=== PATIENT | male | born 1985 ===

== ENCOUNTER 2025-03-01 14:11 | Emergency (ER) | payer SELFPAY ==
[2025-03-01] VITALS (9 sets, daily range): BP systolic 115–142; BP diastolic 57–76; PULSE 66–127; RESP 11–19; TEMP 36.7–36.8; O2SAT 95–100; BMI 26.6
--- NOTE | 2025-03-01 14:23 | ED_ITS ---
HPI - General Adult General Chief complaint: Overdose Stated complaint: ?OD,NO NARCAN GIVEN, IN/OUT OF SLEEP PER EMS Time Seen by Provider: 03/01/25 14:20 Source: patient and EMS Mode of arrival: EMS Limitations: other (Not cooperative) History of Present Illness ED Provider: ALFRED Padilla HPI narrative: 39-year-old male presents uncooperative, trying to do snot rockets at staff members, spitting. Patient uncooperative not providing history. According to EMS question overdose they did not give Narcan patient is in and out of sleep according to them. When he arrives he is somnolent. Narcan will be given. Followed by Haldol, Benadryl and Valium as a sedative as patient is a threat to self and others. Limited history and review of systems due to patient's aggressive behavior Security at bedside Related Data Allergies Allergy/AdvReac Type Severity Reaction Status Date / Time No Known Allergies Allergy Verified 03/01/25 14:52 Review of Systems Review of Systems: Yes all other systems are reviewed and are negative [facility] Past Medical History Attestation statement: The following information was validated with the patient. Source: old records reviewed and nursing notes reviewed Social History Social History Smoked in Last 30 Days: Yes Use of substances other than those prescribed or required for medical reasons: Yes Do you have a plan to hurt others: No Plan Physical Exam ED Exam Exam: Appearance: Alert.? Oriented X3.? No acute distress.?+ aggressive Head: Normocephalic, atraumatic, no step-offs or deformities Eyes: Pupils equal, round and reactive to light.? Neck: Normal inspection.? Neck supple.? CVS: Normal heart rate and rhythm.? Pulses normal.? Respiratory: No respiratory distress.? Breath sounds normal.? Abdomen: Soft and nontender.? Skin: Skin warm and dry.? Normal skin color.? Normal skin turgor.? Extremities: No lower extremity edema.? No calf ttp. 5/5 strength to bilateral upper and lower extremities Neuro: Oriented X 3.? No motor deficit.? No sensory deficit. CN 2-12 intact Vital Signs: Vital Signs - 24 hr 03/01/25 15:19 03/01/25 15:33 03/01/25 15:48 Temperature Pulse Rate 127 H 101 H 100 Respiratory Rate 16 18 19 Blood Pressure 142/57 H 135/75 125/68 Pulse Oximetry 100 100 99 Oxygen Delivery Method Room Air Room Air Room Air 03/01/25 16:04 03/01/25 16:24 03/01/25 18:04 Temperature Pulse Rate 98 102 H 100 Respiratory Rate 18 18 18 Blood Pressure 115/76 127/60 122/57 L Pulse Oximetry 100 96 95 Oxygen Delivery Method Room Air Room Air 03/01/25 19:53 03/01/25 21:55 03/02/25 01:57 Temperature 98.3 F 98.1 F 97.7 F Pulse Rate 81 66 70 Respiratory Rate 11 L 10 L Blood Pressure 120/61 127/75 125/81 Pulse Oximetry 97 98 100 Oxygen Delivery Method Room Air Room Air Room Air BMI result Body Mass Index 26.6 vss Course Reevaluation(s) Reevaluation #1: Patient responded very well to Haldol diazepam and Benadryl. He has been sleeping for awhile. Vital signs are stable. Laboratory studies have not yet been obtained. Sign-out will be given to next provider Justice Mcnulty pending blood work and re- evaluation Time: 17:54 Reevaluation #2: 11:42 PM 03/01/2025 (Lincoln SIMON): Patient is signed out to this provider at shift change. In summary the patient is a 39-year-old male presenting to the ED for evaluation of unresponsive episode in the street, patient woke to verbal stimuli for EMS and did not require Narcan. The patient reportedly arrived to the ED very somnolent however shortly thereafter became highly agitated, spitting and kicking, yelling, requiring chemical restraint. The patient r eceived Benadryl, Haldol, and Valium IM. The patient is subsequently became more calm and was given his methadone dosing. Since receiving methadone patient began refusing labs or other intervention or assessment. The patient was offered detox services and declined. Patient was signed out to this provider pending re-evaluation as he was extremely somnolent following chemical restraint. At this time patient remains sleepy but wakes to verbal stimuli, no evidence of acute distress. Patient has been monitored now for 9 hours since administration of chemical restraint. We will attempt to wake and discharge the patient per sign-out plan of care. 3:38 AM 03/02/2025 (Lincoln SIMON): The patient was monitored for an additional 4 hours without any adverse events. The patient just now got up under his own power and was found urinating on the hallway wall, next to the bathroom, stating he did not know where the bathroom was located. The patient is ambulating with a steady gait, is alert and awake, we will discharge. Medications Administered Discontinued Medications Generic Name Dose Route Start Last Admin Trade Name Mckinley PRN Reason Stop Dose Admin Diazepam 2.5 mg 03/01/25 14:21 03/01/25 14:28 Diazepam 10 Mg/2 Ml Cartridge IM 03/01/25 14:22 2.5 mg STAT STA Administration Diphenhydramine HCl 50 mg 03/01/25 14:21 03/01/25 14:29 Diphenhydramine Hcl 50 Mg/Ml Vial IM 03/01/25 14:22 50 mg ONCE ONE Administration Haloperidol Lactate 5 mg 03/01/25 14:21 03/01/25 14:29 Haloperidol Lactate 5 Mg/Ml Vial IM 03/01/25 14:22 5 mg ONCE ONE Administration Methadone HCl 40 mg 03/01/25 14:39 03/01/25 15:09 Methadone Hcl 20 Mg/2 Ml Oral.Conc PO 03/01/25 14:40 20 mg ONCE ONE Administration Medical Decision Making Medical Decision Making [facility] Narrative: 1426 39-year-old male presents uncooperative status post opiate use. Initially somnolent than aggressive. Will give nasal Narcan followed by Haldol, Benadryl and Valium. Physical exam patient extremely aggressive will hold on examining patient until he is much more calm. History and physical exam consistent with opiate overdose and possible polysubstance abuse. Will rule out alcohol intoxication metabolic derangements. Unlikely encephalitis or intracranial hemorrhage/stroke Plan medical clearance evaluation by recovery if patient would like Differential Diagnosis Differential Diagnoses: The differential diagnosis associated with the presentation includes (History and physical exam consistent with opiate overdose and possible polysubstance abuse. Will rule out alcohol intoxication metabolic derangements. Unlikely encephalitis or intracranial hemorrhage/stroke) Admission/Observation Consideration of admission/observation: Escalation of care including admission/observation considered Lab Data [facility] Lab Attestation statement: I reviewed the patient's lab results. Discharge Plan Discharge Clinical Impression: Drug overdose Patient Disposition: Home, Self-Care Instructions: Adult Overdose (ED) Additional Instructions: Thank you for choosing [facility]'s Emergency Department for your care today. At this time there is no evidence of an acute process requiring admission to the hospital or continued ED observation, and it is safe to discharge you home. You were seen in the emergency department today for evaluation of a suspected opiate overdose. Please do not use heroin or other narcotics as they are generally not good for your health and can put you at risk for respiratory arrest, anoxic brain injury, severely decreased quality of life, and potentially an otherwise avoidable . Please make use of all available personal and community-based resources to attempt to become sober from recreational drugs. Please stay well hydrated and get plenty of rest. Please follow up with your primary care physician for re-evaluation, additional management of your symptoms, and continued preventative care. If you do not have a primary care physician, please call the [facility] at [phone] to establish a new primary care physician. While waiting to establish your new primary care physician, you can call our [facility] at [phone] for non-emergency needs. Please return to the emergency department if you develop a severe or sudden change in your symptoms, a fever over 100.4 that does not improve with Tylenol or Ibuprofen, recurrent vomiting, or any other new or worsening symptoms or concerns.
[2025-03-01] MEDS: diazePAM 10 MG/2 ML CARTRIDGE 2.5 MG IM (14:28)
[2025-03-01] MEDS: methADONE HCl 20 MG/2 ML ORAL.CONC 40 MG PO (15:09)
--- NOTE | 2025-03-01 15:21 | MHC.EDTECH ---
Addendum entered by Mayra Hill 03/01/25 17:38: Second attempt to obtain blood was unsuccessful as Pt pulled his arm away 2x during attempt. Original Note: This tech attempted to obtain lab work on Pt. Pt is uncooperative and will not allow for it at this time. RN aware.
--- NOTE | 2025-03-01 15:39 | PC.NURSE ---
Pt comes to ED today via EMS from the streets. Per EMS, Pt found in the street unresponsive. No Narcan given in transport, Pt able to sat well. Upon arrival to ED Pt severely agitated, violent, and combative with staff. Pt attempts to blow snot rockets on staff, screams and uses foul language and will not permit VS assessment. Pt medicated per MAR for unsafe behaviors. Despite medications, Pt continues to be combative with staff. He attempts to flee his stretcher, screams and verbally attacks staff. Pt will not allow for VS assessments despite encouragement. Pt defecates on himself and throws it onto floor of room. He will not participate in cleaning himself or with changing of linens on stretcher. On arrival, Pt reports he takes Methadone, later Pt then reports he is not on Methadone and would like to take some now as he is withdrawing. This RN attempts to medicate Pt with 40mg methadone as ordered and per his request. Pt refuses to take second syringe of 20mg. Pt received total dose of 20mg Methadone. Remaining 20mg syringe wasted in pyxis and in pyxis machine with ALETA Castellon. Pt continues to attempt to flee the stretcher however does not keep his eyes open. He also c/o pain to his ankles/feet. This RN and tire stripper Mayra have Pt return to stretcher and remain with Pt until he falls asleep Pt is now resting with eyes closed. VSS and Pt sating appropriately on room air. Curtain remains open for visualization/monitoring of Pt
--- NOTE | 2025-03-01 20:36 | PC.NURSE ---
Assumed care of this patient at 1900, patient continues to sleep soundly on stretcher, VSS.
--- NOTE | 2025-03-01 23:42 | PC.NURSE ---
pt refusing to labs, per provider once he is awake, will discharge.
--- NOTE | 2025-03-02 01:02 | PC.NURSE ---
pt continues to be sleepy, provider aware.
[2025-03-02 01:57] VITALS: BP 125/81; PULSE 70; RESP 10; TEMP 36.5; O2SAT 100
[2025-03-02 04:07] VITALS: BP 125/81; PULSE 70; RESP 10; TEMP 36.5; O2SAT 100
--- NOTE | 2025-03-02 04:07 | PC.NURSE ---
pt refusing vitals, labs, pt urinated in hallway, pt belonging given, clean pants, pt discharge home.
--- NOTE | 2025-03-02 04:10 | PC.NURSE ---
pt refusing vitals, labs, pt urinated in hallway, pt belonging given, clean pants, pt discharge home.
== END 2025-03-02 07:10 | disposition home or self-care (01) ==
LOC: HO.ED 03-02 07:18
PROVIDERS: Emergency Provider Emergency Medicine
DX: T40.1X1A Poisoning by heroin, accidental (unintentional), initial encounter (principal); T65.91XA Toxic effect of unspecified substance, accidental (unintentional), initial encounter; Y92.9 Unspecified place or not applicable
CPT/HCPCS: 96372; 99285; J1200; J1630; J3360